=== PATIENT | female | born 1940 | race Caucasian/White ===

== ENCOUNTER 2018-06-16 13:20 | Inpatient (IN) ==
[2018-06-16] MEDS ORDERED: NS 1,000 ML IV ONE ×3 (13:57→16:36)
--- NOTE | 2018-06-16 14:20 | Diag Imaging Result Doc PS360 ---
EXAM: CHEST-2 VIEWS INDICATION: cough TECHNIQUE: 2 views COMPARISON: None. FINDINGS: There is mild interstitial thickening throughout with a grossly chronic appearance. There is suggestion of mild atelectasis versus scarring at the left lower lung zone. No well-defined airspace consolidation can be identified. There is no discrete pleural fluid collection or pneumothorax. The cardiomediastinal silhouette and central vasculature are grossly unremarkable. IMPRESSION: Chronic appearing changes as described. No definite acute pathology by plain radiograph. Electronically signed by Darci Obando 06/16/2018 2:17 PM
--- NOTE | 2018-06-16 14:44 | Diag Imaging Result Doc PS360 ---
EXAM: CT HEAD W/O CONTRAST INDICATION: Weakness generalized TECHNIQUE: This exam was performed using automated exposure control, adjustment of mA or kV according to patient size, and/or use of iterative reconstruction technique. COMPARISON: None. FINDINGS: There is a small focus of low attenuation in the subcortical white matter of the left temporal parietal region on image 27 of series 2. 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 However, it is nonspecific. A subacute lacunar infarct is possible in the right clinical scenario. There is no other definite acute infarct given the limited sensitivity of CT versus MRI. There is no discrete intracranial mass, mass effect, or intracranial hemorrhage. The surrounding soft tissues and bony structures are essentially unremarkable. 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 Please see the above discussion. Electronically signed by Darci Obando 06/16/2018 2:42 PM
[2018-06-16 14:46] LABS: BASO# 0.02 X1000 (0.0-0.2); BASO% 0.2 % (0.0-0.8); EOS# 0.44 X1000 (0.0-0.7); EOS% 3.5 % (0.0-10.0); HEMOGLOBIN 13.6 g/dL (12.0-16.0); IMM GRAN# 0.09 X1000 (0.0-0.04); IMM GRAN% 0.7 % (0.0-0.5); LYMPH# 1.78 X1000 (1.2-3.4); LYMPH% 14.1 % (20.5-51.1); MCH 31.8 PG (27-31); MCHC 33.2 g/dL (33-37); MCV 95.8 FL (81-99); MONO# 0.96 X1000 (0.11-0.59); MONO% 7.6 % (1.7-9.3); MPV 9.6 FL (7.4-10.4); NEUT% 73.9 % (42.2-75.2); PLT 326 X1000 (130-400); RBC 4.28 XMIL (4.2-5.4); RDW 13.8 % (11.5-14.5); WBC 12.59 X1000 (4.8-10.8)
[2018-06-16 15:14] LABS: AGAP 13; ALB/GLOB RATIO 1.1; ALBUMIN 4.1 g/dL (3.5-5.0); ALKALINE PHOSPHATASE 65 U/L (32-104); BUN 19 mg/dL (8-22); CALCIUM 9.9 mg/dL (8.8-10.2); CHLORIDE 96 mmol/L (98-107); CK PROFILE 40 U/L (24-173); COSMO 270; CREATININE 0.8 mg/dL (0.5-0.9); ESTIMATED GFR > 60; GLUCOSE 119 mg/dL (70-104); GOT 23 U/L (10-30); GPT 18 U/L (10-36); POTASSIUM 4.9 mmol/L (3.5-5.1); SODIUM 133 mmol/L (136-145); TCO2 24 mmol/L (25-35); TOTAL BILIRUBIN 0.49 mg/dL (0.20-1.00); TOTAL PROTEIN 7.9 g/dL (6.3-8.3)
[2018-06-16 15:14] LABS: URINE SOURCE CLEAN CATCH
[2018-06-16 15:18] LABS: BILIRUBIN URINE NEGATIVE (NEGATIVE); BLOOD URINE NEGATIVE (NEGATIVE); COLOR YELLOW; GLUCOSE URINE NEGATIVE (NEGATIVE); KETONE URINE 10 mg/dL (NEGATIVE); LEUKOCYTES URINE SMALL (NEGATIVE); NITRITE URINE NEGATIVE (NEGATIVE); PH URINE 5.5; PROTEIN URINE TRACE mg/dL (NEGATIVE); SP GRAVITY URINE 1.016; TURBIDITY URINE CLEAR (CLEAR); UR EPITHELIAL CELLS <10 /HPF (<10); URINE BACTERIA NEGATIVE /HPF; URINE RBC <10 /HPF (<10); UROBILINOGEN URINE NORMAL (NORMAL)
--- NOTE | 2018-06-16 16:09 | PROVIDER DOCUMENTATION ---
This chart was entered by Jen Cabrera Scribe, acting as scribe for Ken Joe MD. HPI-General Adult - General Chief Complaint: Weakness Stated Complaint: DONT FEEL GOOD ALL OVER Time Seen by Provider: 06/16/18 13:40 Source: patient, family Allergies/Adverse Reactions: Patient Allergies Allergy/AdvReac Type Severity Reaction Status Date / Time Penicillins Allergy SWELLING Verified 06/23/13 13:37 Home Medications: Home Medication List Medication Instructions Recorded Confirmed Last Taken Type Bisoprolol [Zebeta] 5 mg PO DAILY 06/23/13 07/25/13 07/24/13 07:00 History Famotidine [Pepcid] 20 mg PO BID 06/23/13 07/25/13 07/24/13 07:00 History Metronidazole [Flagyl] 500 mg PO TID #21 tablet 07/29/13 Unknown Rx - History of Present Illness -Gen Adult Nature of Presenting Problems: 77 y/o female presents to ED with worsening cough, weakness, and diarrhea onset last night. Family of pt reports she was diagnosed with UTI at PCP office 8 days ago and is being treated with macrobid. Family states she began complaining cough and UTI symptoms 5 days ago. Pt is alert and oriented. Location of Pain/Injury: reports: generalized Pain Radiation: reports: no radiation Quality of Pain: reports: none Severity: reports: mild Onset/Duration: reports: 5 days ago Timing: reports: getting worse Context/Activities at Onset: reports: none Modifying Factors: improves with: nothing Associated Symptoms: reports: cough, diarrhea, weakness, other (UTI symptoms) Similar Symptoms Previously?: No Recently seen or treated by another doctor?: Yes (PCP 8 days ago for UTI) Review of Systems - Adult - REVIEW OF SYSTEMS - ADULT Constitutional: denies: chills, fever Eyes: reports: no symptoms reported Ears, Nose, Mouth & Throat: reports: no symptoms reported Cardiovascular: denies: chest pain, palpitations Respiratory: reports: cough. denies: shortness of breath Gastrointestinal: reports: diarrhea. denies: abdominal pain, nausea, vomiting Genitourinary: reports: dysuria. denies: incontinence Musculoskeletal: denies: back pain, joint pain Integumentary: reports: no symptoms reported Neurological: reports: other (weakness). denies: dizziness/vertigo, seizure Psychiatric: reports: no symptoms reported Endocrine: reports: no symptoms reported Hematologic/Lymphatic: reports: no symptoms reported Allergic/Immunologic: reports: no symptoms reported All Other Systems: Reviewed and Negative Past History - Adult - PAST MEDICAL HISTORY-ADULT Review of Records: reports: Old Records Reviewed, Nursing Assessment Review, Medications Reviewed Major Childhood Illnesses: reports: denies history Cardiovascular: reports: HTN - PRIOR SURGERIES/PROCEDURES Surgical/Procedure History: reports: none - IMMUNIZATION STATUS Childhood Immunizations: See Nurse Assessment Flu Vaccine: See Nurse Assessment - FAMILY HISTORY Family History: reviewed, not pertinent - SOCIAL HISTORY Smoking: non-smoker Substance Use: none/never Alcohol Use Frequency: never Living Situation: family Physical Exam-General - PHYSICAL EXAM-ADULT Initial Vital Signs Reviewed: Yes - CONSTITUTIONAL General Appearance: appears well, alert, no apparent distress - EYES Eyes: PERRL/EOMI, pink conjunctivae - HEAD, EARS, NOSE, MOUTH & THROAT HENMT: normocephalic/atraumatic, moist mucous membranes, normal ENT inspection - NECK Neck: non-tender, full range of motion - RESPIRATORY Respiratory: chest non-tender, lungs clear, normal breath sounds - CARDIOVASCULAR Cardiovascular: normal peripheral pulses, regular rate, rhythm - GASTROINTESTINAL (ABDOMEN) Abdominal Exam: normal bowel sounds, soft, tenderness (diffuse) - MUSCULOSKELETAL Back Exam: normal inspection, no CVA tenderness Extremity: normal range of motion, non-tender, normal gait - SKIN Integumentary: normal color, warm/dry - NEUROLOGIC Neurologic: grossly normal - PSYCHIATRIC Psych/Mental Status: normal mood/affect, normal thought content, normal thought process Progress - PLAN OF CARE/RESULTS Progress/Plan/Lab Results: Vital Signs - 8 hr 06/16/18 13:32 Temperature 98.4 F Pulse Rate 104 H Respiratory Rate 19 Blood Pressure 106/73 O2 Sat by Pulse Oximetry 96 Influenza A and B are negative. Laboratory Tests 06/16/18 14:30 WBC 12.59 H RBC 4.28 Hgb 13.6 Hct 41.0 MCV 95.8 MCH 31.8 H MCHC 33.2 RDW Std Deviation 13.8 Plt Count 326 MPV 9.6 Immature Gran % (Auto) 0.7 H Neut % (Auto) 73.9 Lymph % (Auto) 14.1 L [place] % (Auto) 7.6 Eos % (Auto) 3.5 Baso % (Auto) 0.2 Immature Gran # (Auto) 0.09 H Neut # (Auto) 9.30 H Lymph # (Auto) 1.78 [place] # (Auto) 0.96 H Eos # (Auto) 0.44 Baso # (Auto) 0.02 Laboratory Tests 06/16/18 06/16/18 06/16/18 14:30 14:30 14:30 WBC 12.59 H RBC 4.28 Hgb 13.6 Hct 41.0 MCV 95.8 MCH 31.8 H MCHC 33.2 RDW Std Deviation 13.8 Plt Count 326 MPV 9.6 Immature Gran % (Auto) 0.7 H Neut % (Auto) 73.9 Lymph % (Auto) 14.1 L [place] % (Auto) 7.6 Eos % (Auto) 3.5 Baso % (Auto) 0.2 Immature Gran # (Auto) 0.09 H Neut # (Auto) 9.30 H Lymph # (Auto) 1.78 [place] # (Auto) 0.96 H Eos # (Auto) 0.44 Baso # (Auto) 0.02 Sodium 133 L Potassium 4.9 Chloride 96 L Carbon Dioxide 24 L Anion Gap 13 BUN 19 Creatinine 0.8 Estimated GFR/1.73 m2 > 60 BUN/Creatinine Ratio 24 Glucose 119 H Calculated Osmolality 270 Calcium 9.9 Total Bilirubin 0.49 AST 23 ALT 18 Alkaline Phosphatase 65 Creatine Kinase 40 Troponin T < 0.010 Total Protein 7.9 Albumin 4.1 Globulin 3.8 Albumin/Globulin Ratio 1.1 Urine Source Urine Color Urine Turbidity Urine pH Ur Specific [place] Urine Protein Ur Glucose (Stick) Ur Ketones (Stick) Urine Blood Urine Nitrite Urine Bilirubin Urobilinogen Dipstick Urine Leukocytes Urine WBC (Auto) Urine RBC (Auto) U Epithel Cells (Auto) Urine Bacteria (Auto) 06/16/18 15:03 WBC RBC Hgb Hct MCV MCH MCHC RDW Std Deviation Plt Count MPV Immature Gran % (Auto) Neut % (Auto) Lymph % (Auto) [place] % (Auto) Eos % (Auto) Baso % (Auto) Immature Gran # (Auto) Neut # (Auto) Lymph # (Auto) [place] # (Auto) Eos # (Auto) Baso # (Auto) Sodium Potassium Chloride Carbon Dioxide Anion Gap BUN Creatinine Estimated GFR/1.73 m2 BUN/Creatinine Ratio Glucose Calculated Osmolality Calcium Total Bilirubin AST ALT Alkaline Phosphatase Creatine Kinase Troponin T Total Protein Albumin Globulin Albumin/Globulin Ratio Urine Source CLEAN CATCH Urine Color YELLOW Urine Turbidity CLEAR Urine pH 5.5 Ur Specific [place] 1.016 Urine Protein TRACE A Ur Glucose (Stick) NEGATIVE Ur Ketones (Stick) 10 A Urine Blood NEGATIVE Urine Nitrite NEGATIVE Urine Bilirubin NEGATIVE Urobilinogen Dipstick NORMAL Urine Leukocytes SMALL A Urine WBC (Auto) 10-20 A Urine RBC (Auto) <10 U Epithel Cells (Auto) <10 Urine Bacteria (Auto) NEGATIVE A/P: UTI and generalized weakness. Dr Martinez accepted admission. Started IV levaquin and IV fuids, vitals stable. Result Diagrams: 06/16/18 14:30 06/16/18 14:30 - EKG 1 Time of EKG reading by physician:: 13:42 EKG Read and Signed by:: Ken Joe EKG Interpretation (*Must complete 3 of following elements*): Normal Rate: 96 Rhythm: NSR [place]: normal QRS: normal AR Interval: normal ST Wave: normal - XRAY 1 XRAY Study: Chest Impression: Normal (FINDINGS: There is mild interstitial thickening throughout with a grossly chronic appearance. There is suggestion of mild atelectasis versus scarring at the left lower lung zone. No well-defined airspace consolidation can be identified. There is no discrete pleural fluid collection or pneumothorax. The cardiomediastinal silhouette and central vasculature are grossly unremarkable. IMPRESSION: Chronic appearing changes as described. No definite acute pathology by plain radiograph. Electronically signed by Darci Obando 06/16/2018 2:17 PM) - CT/MRI 1 CT Study: Head Impression: Abnormal ( FINDINGS: There is a small focus of low attenuation in the subcortical white matter of the left temporal parietal region on image 27 of series 2. 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 However, it is nonspecific. A subacute lacunar infarct is possible in the right clinical scenario. There is no other definite acute infarct given the limited sensitivity of CT versus MRI. There is no discrete intracranial mass, mass effect, or intracranial hemorrhage. The surrounding soft tissues and bony structures are essentially unremarkable. 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 Please see the above discussion. Electronically signed by Darci Obando 06/16/2018 2:42 PM) - CONSULTS/PCP/HOSPITALIST Notification #1 *Consult/PCP/Hospitalist*: Dr. Teran Time Discussed: 15:48 Reason/Comments: UTI; generalized weakness Consult Disposition: Admit Departure - Departure Date of Disposition Decision: 06/16/18 Time of Disposition Decision: 15:48 DIAGNOSIS: Generalized weakness UTI (urinary tract infection) Qualifiers: Urinary tract infection type: site unspecified Hematuria presence: without hematuria Qualified Code(s): N39.0 - Urinary tract infection, site not specified Disposition: ADMITTED INPATIENT 09 Certified Medical Emergency: Emergent Condition: Stable Additional Freetext Instructions: ED Follow Up Instructions: You have been treated by a care provider in the Emergency Department. These instructions are being provided to you so you can have an understanding of how to care for yourself upon discharge. Upon discharge from the Emergency Department, you are responsible for making arrangements for follow-up care by a physician of your choice. Take all prescribed medications as directed. Return to the Emergency Department immediately for any new or worsening symptoms. You may call the Physician Referral phone number at [phone] to obtain a list of Physicians who are taking new patients. We have examined and treated you today on an emergency basis only. This was not a substitute for, or an effort to provide, complete medical care. In most cases, you must let your doctor check you again. Tell your doctor about any new or lasting problems. We cannot recognize and treat all injuries or illnesses in one Emergency Department visit. If you had special tests, such as X-rays or CT scans, will be reviewed by radiologist and will call you if there are any new suggestions Follow up with primary care provider in 1 to 2 days if no improvement. If you do not have a primary care provider, you need to choose one as soon as possible. Take medicines as prescribed. Monitor for any side effects or adverse events fro m medications. If any side effect, adverse event or rash develops, or if you suspect any other adverse reaction to the medication, then discontinue the medication immediately and contact clinic /PCP or go to the nearest ER. Narcotic meds / sedative meds instruction - patent advised not to drive, operate any machinery or go into water after taking meds as it may impair mental ability to react to the situation in an appropriate manner. Continue other current medicines. Follow up with PCP within 24-48 hours, or sooner if symptoms worsen or fail to improve. Patient / guardian verbalizes understanding of treatment plan, medication, and side effects and agrees with treatment plan. Patient leaves ER in stable condition and ambulatory state. Return to ER as needed. Discharge instructions reviewed verbally and given to patient in written form. Follow up with primary care provider. Referrals and Follow-Ups: Cheryl Lilly MD [Primary Care Provider] - - Critical Care Note This patient required my direct & personal management of CC.: No Attestation - Physician/ JOYCE Attestation Patient care was provided by Advanced Practice Provider:: No The physician spent face to face time with patient:: Yes Advanced Practice Provider documentation review:: Supervising physician onsite and consulted in the evaluation and care of this patient. The physician did have a face to face encounter with the patient. This chart was documented by the indicated scribe, (Jen Cabrera, [employer]) and accurately reflects the services I performed and decisions made by me, Ken Joe MD, as attested by the provider's signature.
[2018-06-16] MEDS ORDERED: TYLENOL PO ONE (16:24)
[2018-06-16] MEDS: LEVAQUIN 500 MG/D5W 500 MG/100 ML IVPB IV SCH (16:50)
[2018-06-16] MEDS ORDERED: SODIUM CHLORIDE 0.9% INJ SCH (19:30)
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
[2018-06-16] MEDS ORDERED: ZEBETA PO SCH (21:00)
[2018-06-16] MEDS: LOVENOX SUBQ SCH (21:04)
[2018-06-16] MEDS: POTASSIUM CHLORIDE 10 MEQ in NS 1,000 ML IV SCH (21:04)
[2018-06-16] MEDS: PROTONIX IV SCH (21:04)
[2018-06-17 06:27] LABS: BASO# 0.02 X1000 (0.0-0.2); BASO% 0.2 % (0.0-0.8); EOS# 0.45 X1000 (0.0-0.7); EOS% 4.1 % (0.0-10.0); HEMATOCRIT 36.9 % (37.0-47.0); HEMOGLOBIN 11.9 g/dL (12.0-16.0); IMM GRAN# 0.07 X1000 (0.0-0.04); IMM GRAN% 0.6 % (0.0-0.5); LYMPH# 2.07 X1000 (1.2-3.4); LYMPH% 18.7 % (20.5-51.1); MCH 31.4 PG (27-31); MCHC 32.2 g/dL (33-37); MCV 97.4 FL (81-99); MONO# 0.74 X1000 (0.11-0.59); MONO% 6.7 % (1.7-9.3); MPV 9.7 FL (7.4-10.4); NEUT# 7.71 X1000 (1.4-6.5); NEUT% 69.7 % (42.2-75.2); PLT 285 X1000 (130-400); RBC 3.79 XMIL (4.2-5.4); RDW 14.2 % (11.5-14.5); WBC 11.06 X1000 (4.8-10.8)
[2018-06-17 07:06] LABS: AGAP 8; ALB/GLOB RATIO 0.9; ALBUMIN 3.3 g/dL (3.5-5.0); ALKALINE PHOSPHATASE 53 U/L (32-104); BUN 14 mg/dL (8-22); CALCIUM 8.8 mg/dL (8.8-10.2); CHLORIDE 111 mmol/L (98-107); COSMO 284; CREATININE 0.7 mg/dL (0.5-0.9); ESTIMATED GFR > 60; GLUCOSE 99 mg/dL (70-104); GOT 17 U/L (10-30); GPT 13 U/L (10-36); MAGNESIUM 1.8 mg/dL (1.5-2.7); POTASSIUM 4.7 mmol/L (3.5-5.1); SODIUM 142 mmol/L (136-145); TCO2 23 mmol/L (25-35); TOTAL BILIRUBIN 0.33 mg/dL (0.20-1.00); TOTAL PROTEIN 6.8 g/dL (6.3-8.3)
[2018-06-17] MEDS: POTASSIUM CHLORIDE 10 MEQ in NS 1,000 ML IV SCH (10:21)
[2018-06-17] MEDS: TYLENOL PO PRN ×2 (10:21→21:22)
--- NOTE | 2018-06-17 10:22 | PROGRESS NOTE ---
DATE: 06/17/2018 SUBJECTIVE: Ms. Swanson is feeling better. She denied any fever or chills. No dysuria. Her weakness seems to be getting better. No unusual cough or expectoration. Denied any chest pain. OBJECTIVE: Vital Signs: Vital signs noted. Neck: Supple. No JVD. Lungs: Bilateral good air entry present. CVS: S1 and S2 heard. Abdomen: Soft, nontender. Bowel sounds present. Extremities: No cyanosis, clubbing. No acute DVT. ACCOUNTS MANAGER: Alert, awake. Able to move all 4 limbs. ASSESSMENT: 1. The patient admitted with severe weakness. 2. Her blood pressure was at times low. 3. Also had hyponatremia, which improved. 4. Clinical dehydration. 5. Urinary tract infection. PLAN: The patient's blood pressure at times was staying low. I am going to decrease her blood pressure medicine to half the dose, 2.5 mg. Continue the rest of the treatment. Close observation. Urine culture result is pending. We will watch patient today. If clinical condition permits, we will plan discharging patient home tomorrow. We will ambulate the patient in the room and hallway. cc: Harjinder Teran MD
[2018-06-17] MEDS: LEVAQUIN 500 MG/D5W 500 MG/100 ML IVPB IV SCH (16:06)
[2018-06-17] MEDS: ZEBETA PO SCH (21:22)
[2018-06-17] MEDS: LOVENOX SUBQ SCH (21:23)
[2018-06-17] MEDS: PROTONIX IV SCH (21:23)
[2018-06-18] MEDS: TYLENOL PO PRN ×2 (01:59→14:02)
[2018-06-18] MEDS ORDERED: MORPHINE IV ONE (05:09)
[2018-06-18] MEDS ORDERED: ASPIRIN EC PO ONE (05:09)
--- NOTE | 2018-06-18 07:02 | EKG Report ---
Test Performed on : 06/18/2018 04:43:38 AM Test Reason : chest pain Blood Pressure : / mmHG Vent. Rate : 080 BPM Atrial Rate : 080 BPM P-R Int : 132 ms QRS Dur : 084 ms QT Int : 370 ms P-R-T Axes : 052 043 066 degrees QTc Int : 426 ms Normal sinus rhythm. Nonspecific T wave abnormality Abnormal ECG When compared with ECG of 16-JUN-2018 13:42, (Unconfirmed) No significant change was found Confirmed by Edvin LANE, Brodie Briceno ([id number]) on 06/18/2018 12:49:09 PM
--- NOTE | 2018-06-18 07:21 | EKG Report ---
Test Performed on : 06/16/2018 1:42:01 PM Test Reason : wekaness Blood Pressure : / mmHG Vent. Rate : 096 BPM Atrial Rate : 096 BPM P-R Int : 134 ms QRS Dur : 080 ms QT Int : 318 ms P-R-T Axes : 048 020 053 degrees QTc Int : 401 ms Normal sinus rhythm. Normal ECG No previous ECGs available Unconfirmed Result
[2018-06-18] MEDS: TORADOL IV PRN ×2 (09:44→14:44)
--- NOTE | 2018-06-18 10:01 | Diag Imaging Result Doc PS360 ---
EXAM: SHOULDER-LEFT HISTORY: Pain TECHNIQUE: Left shoulder two views COMPARISON: None. FINDINGS: No fracture. No dislocation. No separation at the acromioclavicular joint. Prominent bone spurring and narrowing to the acromioclavicular joint. There is also glenohumeral joint space narrowing with bony remodeling of the humeral head. IMPRESSION: Long-standing arthritis. Electronically signed by Oscar Keller 06/18/2018 9:58 AM
--- NOTE | 2018-06-18 21:06 | PROGRESS NOTE ---
DATE: 06/18/2018 SUBJECTIVE: Level 3 documentation. A 77-year-old white female admitted to the hospital on 06/16/2018 with generalized complaints and weakness. She had a urinary tract infection in my office. She is also prone for C difficile diarrhea. She was placed on Macrobid. Apparently, I did review the H and P that was done by Dr. Teran. Now she complains of atypical chest pain, left shoulder, and no shortness of breath, PND, orthopnea, and no swelling of feet. PAST MEDICAL HISTORY: Reviewed. PAST SURGICAL HISTORY: Reviewed. MEDICINES: Reviewed. ALLERGIES: Penicillin. PHYSICAL EXAMINATION: Vital Signs: Temperature is 98.2 degrees, pulse is 83, blood pressure 129/63, 2 L nasal cannula 99%. HEENT: Within normal limits. Neck: Supple. Chest: Clear. Heart: Sounds are regular. Tenderness in the shoulder area. Abdomen: Belly is soft, nontender. Extremities: No peripheral edema or cyanosis. Neurologic: No neurological deficits. INVESTIGATIONS: CBC: White cell count 11, hematocrit 36.9, platelets 285,000. SMA 7 is normal. LFTs and cardiac enzymes are normal. Repeat urine cultures blood cultures are negative. Flu test is negative. EKG: Normal sinus, nothing acute. X-ray of the shoulder: Prominent bone spurring, narrowing to the AC joint. CT head: No definitive hemorrhage. Could be small stroke on the left temporoparietal area. Chest x-ray: Nothing acute. ASSESSMENT AND PLAN: 1. Recent urinary tract infection, improving. 2. Prone for Clostridium difficile. Discontinue antibiotics. 3. Deep vein thrombosis prophylaxis with Lovenox. 4. Gastrointestinal prophylaxis with intravenous Protonix. 5. Atypical chest pain. Follow up on electrocardiogram and cardiac enzymes. We will give Toradol as needed. 6. Hypertension, on Zebeta. 7. Abnormal CT, currently stable. 8. Out of the bed and will follow up. LEVEL OF DOCUMENTATION: 35 minutes. cc: Niko Lilly MD
[2018-06-18] MEDS: PROTONIX IV SCH (21:41)
[2018-06-18] MEDS: LOVENOX SUBQ SCH (21:42)
[2018-06-18] MEDS: ZEBETA PO SCH (21:42)
[2018-06-19] MEDS: TORADOL IV PRN (04:40)
[2018-06-19 08:13] VITALS: BP 124/56
--- NOTE | 2018-06-21 04:13 | DISCHARGE SUMMARY ---
ADMISSION DATE: 06/16/2018 DISCHARGE DATE: 06/19/2018 DISCHARGING DIAGNOSIS: Altered mental status due to dehydration. SECONDARY DIAGNOSES: 1. Recently treated for urinary tract infection. 2. Hypertension. 3. Left shoulder pain due to osteoarthritis. 4. Atypical chest pain. BRIEF HISTORY: Please see the H and P that was done by Dr. terrazas. In brief, she is a 77-year-old white female who came in with extreme weakness after treating for UTI, some nonspecific diarrhea, was found to have dehydration and hyponatremia. The patient was given IV fluids, IV Levaquin. Follow up workup, normal CBC, normal renal function test. Then the patient started having left- sided chest pain and shoulder pain. X-ray showed osteoarthritis. Follow up EKG cardiac enzymes were negative. The patient came back to the baseline. The rest of the hospital course was uneventful. DISCHARGE LABORATORIES: CBC: White cell count 11, hematocrit 36.9, platelets 285,000. SMA 7: Sodium 142, potassium 4.7, BUN 14, creatinine 0.7. Liver function tests were normal. Cardiac enzymes were normal. Blood cultures and urine cultures were negative. RADIOLOGY PROCEDURES: Shoulder x-ray reported long-standing arthritis. CT head, some white matter microangiopathy and chest x-ray negative. DISCHARGE INSTRUCTIONS: Follow up in my office next week and continue Zebeta 5 mg daily. Discontinue antibiotics. Tylenol as needed for pain. cc: Niko Lilly MD [facility]
== END 2018-06-19 10:00 | disposition home or self-care (01) | DRG 641 ==
LOC: ED 13:20 → 4N 16:44
PROVIDERS: ADMIT Internal Medicine; ATTEND Internal Medicine
CPT/HCPCS: 70450; 71020; 71046; 73030; 80053; 81001; 82550; 82948; 83605; 83735; 84484; 85025; 87040; 87088; 87275; 87276; 87804; 93005; 93010; 94761; 96365; 99285; A9270; C9113; J1650; J1885; J1956; J2270; J3480; J7030; S0164; XXXXX

== ENCOUNTER 2018-06-28 02:32 | Inpatient (IN) ==
[2018-06-28] MEDS ORDERED: NS 500 ML IV ONE (03:27)
--- NOTE | 2018-06-28 03:32 | PROVIDER DOCUMENTATION ---
HPI-General Adult - General Chief Complaint: Abdominal Pain Stated Complaint: abd pain Time Seen by Provider: 06/28/18 03:22 Source: patient, family Allergies/Adverse Reactions: Patient Allergies Allergy/AdvReac Type Severity Reaction Status Date / Time Penicillins Allergy SWELLING Verified 06/28/18 03:26 Home Medications: Home Medication List Medication Instructions Recorded Confirmed Last Taken Type Bisoprolol [Zebeta] 5 mg PO QHS 06/23/13 06/16/18 06/15/18 History - History of Present Illness -Gen Adult Nature of Presenting Problems: VAGUE WEAKNESS, RESTLESS, PAIN IN LEFT SHOULDER, COUGH, CHILLSTODAY AND WORSENING THIS EVENING. JUST DISCHARGED FROM [facility] WITH DR MUÑOZ FOR A UTI. STRUGGLING TO CLEAR UTI > 3 WEEKS. REPORTED LOW BP AT HOUSE: 84/45. P OX LOWER INITAL HERE AT 89% ON 2 LITERS . NO HX LUNG DISEASE OR CARDIAC DISEASE. Review of Systems - Adult - REVIEW OF SYSTEMS - ADULT Constitutional: reports: no symptoms reported, chills, fatique. denies: fever, night sweats Eyes: reports: no symptoms reported Ears, Nose, Mouth & Throat: reports: no symptoms reported Cardiovascular: reports: no symptoms reported. denies: chest pain, edema, palpitations Respiratory: reports: cough. denies: excessive sputum production, shortness of breath, wheezing Gastrointestinal: reports: nausea Genitourinary: reports: frequent UTI's Musculoskeletal: reports: no symptoms reported Integumentary: reports: no symptoms reported Neurological: reports: no symptoms reported Psychiatric: reports: no symptoms reported Endocrine: reports: no symptoms reported Hematologic/Lymphatic: reports: no symptoms reported Allergic/Immunologic: reports: no symptoms reported All Other Systems: Reviewed and Negative Past History - Adult - PAST MEDICAL HISTORY-ADULT Review of Records: reports: Old Records Reviewed, Nursing Assessment Review, Medications Reviewed, Social history reviewed & non-contributory. Major Childhood Illnesses: reports: denies history Cardiovascular: reports: denies history Respiratory: reports: denies history Gastrointestinal: reports: denies history Obstetrical/Gynecological: reports: denies history Genitourinary: reports: denies history Musculoskeletal: reports: denies history Neurological: reports: denies history Endocrine/Immune: reports: denies history Other Conditions: reports: denies history Physical Exam-General - PHYSICAL EXAM-ADULT Initial Vital Signs Reviewed: Yes - CONSTITUTIONAL General Appearance: alert, mild distress, other (FUSSY, RESTLESS.) - EYES Eyes: PERRL/EOMI - HEAD, EARS, NOSE, MOUTH & THROAT HENMT: normocephalic/atraumatic, moist mucous membranes - NECK Neck: full range of motion, supple - RESPIRATORY Respiratory: lungs clear, normal breath sounds, no accessory muscle use. negative: respiratory distress, stridor, retractions, splinting - CARDIOVASCULAR Cardiovascular: normal peripheral pulses, regular rate, rhythm, no edema - GASTROINTESTINAL (ABDOMEN) Abdominal Exam: normal bowel sounds, non tender, soft - SKIN Integumentary: normal color, normal turgor, warm/dry - NEUROLOGIC Neurologic: learning solutions specialist II-XII nml as tested, grossly normal, no motor/sensory deficits. negative: facial droop, focal weakness, motor weakness - PSYCHIATRIC Psych/Mental Status: normal mood/affect, normal thought content, normal thought process, oriented x 3 Progress - PLAN OF CARE/RESULTS Progress/Plan/Lab Results: Vital Signs - 8 hr 06/28/18 02:59 06/28/18 03:24 Temperature 98.1 F Pulse Rate 88 Respiratory Rate 19 Blood Pressure 94/62 O2 Sat by Pulse Oximetry 92 L 95 Orders Category Date Time Status Cardiac Monitoring DIRECTED Care 06/28/18 03:22 Ordered ED: Orthostatic Vital Signs (E as directed Care 06/28/18 03:27 Ordered Saline Loc NOW Care 06/28/18 03:23 Ordered CHEST-PORTABLE [RAD] Stat Exams 06/28/18 03:24 Ordered ABG [RESP] Stat Lab 06/28/18 03:23 Ordered BLOOD CULTURE [BLDCUL] Stat Lab 06/28/18 03:23 Ordered COMPREHENSIVE METABOLIC PANEL [CHEM] Stat Lab 06/28/18 03:23 Ordered D-DIMER [COAG] Stat Lab 06/28/18 03:23 Ordered INFLUENZA SCREEN A/B Stat Lab 06/28/18 03:23 Uncollected PRO B-NATRIURETIC PEPTIDE Stat Lab 06/28/18 03:24 Uncollected TROPONIN T Stat Lab 06/28/18 03:24 Uncollected URINALYSIS W/POSS RFLX CULT [URINALYSIS] Stat Lab 06/28/18 03:24 Uncollected Ns 500 ml IV Bolus X1 Med 06/28/18 03:27 Ordered 0.9% Sodium Chloride Inj [Ns] 500 ml IV 999 mls/hr Oxygen Device Stat Oth 06/28/18 03:23 Ordered EKG [EKG] Stat Ther 06/28/18 03:23 Ordered Result Diagrams: 06/28/18 03:08 - REASSESSMENT Reassessment #1 Time Reassessed: 05:45 Status: unchanged (IV HYDRATING, AWAITING READING CTA CHEST.) - EKG 1 Time of EKG reading by physician:: 03:00 EKG Read and Signed by:: Ubaldo Fernadnes EKG Interpretation (*Must complete 3 of following elements*): Normal Rate: 93 Rhythm: SINUS W/ OCC PVCs [place]: normal CO Interval: normal ST Wave: normal - CONSULTS/PCP/HOSPITALIST Notification #1 *Consult/PCP/Hospitalist*: Maxx Time Discussed: 07:35 Consult Disposition: Admit - CHANGE OF SHIFT REPORT (ED Provider) 1 Report Given and Care Transferred to:: DR DUCKWORTH Time of Transfer: 06:58 Departure - Departure Date of Disposition Decision: 06/28/18 Time of Disposition Decision: 07:35 DIAGNOSIS: Weakness, Dehydration, Hypoxemia, Hypotension Pneumonia Qualifiers: Pneumonia type: due to unspecified organism Laterality: left Disposition: ADMITTED INPATIENT 09 Certified Medical Emergency: Emergent Condition: Serious Referrals and Follow-Ups: Cheryl Muñoz MD [Primary Care Provider] - - Critical Care Note This patient required my direct & personal management of CC.: No Attestation - Physician/ JOYCE Attestation The physician spent face to face time with patient:: Yes Advanced Practice Provider documentation review:: Supervising physician onsite and consulted in the evaluation and care of this patient. The physician did have a face to face encounter with the patient.
[2018-06-28 03:58] LABS: ALB/GLOB RATIO 0.7; ALBUMIN 3.4 g/dL (3.5-5.0); POTASSIUM 4.5 mmol/L (3.5-5.1); TOTAL BILIRUBIN 0.47 mg/dL (0.20-1.00)
[2018-06-28 04:32] LABS: ALLEN TEST YES; BE 0.2 mmoll (-3.0-3.0); BLOOD TYPE ARTERIAL; METHB 1.4 % (0.0-1.5); O2(CT) 17.4 mL/dL (15.0-23.0); O2HB 95.4 % (95.0-99.0); PCO2(98.6) 33 mmHg (35-45); PO2(98.6) 81 mmHg (60-100); SAMPLE BLOOD; SAO2 98.6 % (95.0-100.0); THB 12.9 g/dL (11.5-17.4); pH(98.6) 7.46 (7.35-7.45)
[2018-06-28 04:33] LABS: MODALITY CANNULA
--- NOTE | 2018-06-28 06:33 | Diag Imaging Result Doc PS360 ---
CHEST-PORTABLE - 06/28/2018 INDICATION: SOB COMPARISON: 06/16/2018 FINDINGS: There is some stable faint linear atelectasis at the cardiac apex. No focal infiltrates, pneumothorax, or pleural effusion. Heart size is normal. IMPRESSION: No change from prior. No acute process. Electronically signed by Natanael Hutchison 06/28/2018 6:31 AM
[2018-06-28] MEDS ORDERED: LEVAQUIN 750 MG/D5W 750 MG/150 ML IVPB IV ONE (06:52)
--- NOTE | 2018-06-28 07:16 | EKG Report ---
Test Performed on : 06/28/2018 02:52:59 AM Test Reason : SOB Blood Pressure : / mmHG Vent. Rate : 093 BPM Atrial Rate : 093 BPM P-R Int : 124 ms QRS Dur : 072 ms QT Int : 350 ms P-R-T Axes : 048 010 061 degrees QTc Int : 435 ms Sinus rhythm. with occasional ventricular-paced complexes and premature supraventricular complexes. Abnormal ECG When compared with ECG of 18-JUN-2018 04:43, Electronic ventricular pacemaker has replaced Sinus rhythm. Unconfirmed Result
[2018-06-28] MEDS ORDERED: VANCOMYCIN 1 GM/NS 1 GM/250 ML IVPB IV ONE (07:33)
--- NOTE | 2018-06-28 07:48 | Diag Imaging Result Doc PS360 ---
EXAM: CT ANGIOGRM PULMONARY ARTERIES 06/28/2018 HISTORY: SOB, ELEV D-DIMER,HYPOX TECHNIQUE: This exam was performed using automated exposure control, adjustment of mA or kV according to patient size, and/or use of iterative reconstruction technique. COMMENT: 3-D MIPS were performed there are no previous thoracic studies. There are no filling defects in the pulmonary arteries. The aorta is not distended and there is no evidence of dissection. There is a small amount of fluid in the pericardium. There is a tiny left pleural effusion. There are some coronary calcifications. There are calcified granulomatous nodes in the subcarina and left hilum. There are some noncalcified precarinal and aorticopulmonary window nodes the latter including a node measuring 13 mm in diameter. There is some fibrosis or atelectasis in both lung bases. This is particularly true in the left lower lobe. Compared to the previous abdominal study of 06/23/2013 this is worse. IMPRESSION: No evidence of pulmonary emboli. Bibasilar atelectasis and/or bronchopneumonia. Electronically signed by Nilesh Lou 06/28/2018 7:46 AM
[2018-06-28 08:00] LABS: URINE SOURCE CATH
[2018-06-28 08:12] LABS: UR EPITHELIAL CELLS <10 /HPF (<10); URINE BACTERIA NEGATIVE /HPF; URINE RBC <10 /HPF (<10); URINE WBC 20-40 /HPF (<10)
[2018-06-28 08:13] LABS: BILIRUBIN URINE NEGATIVE (NEGATIVE); BLOOD URINE NEGATIVE (NEGATIVE); COLOR YELLOW; GLUCOSE URINE NEGATIVE (NEGATIVE); KETONE URINE NEGATIVE (NEGATIVE); LEUKOCYTES URINE SMALL (NEGATIVE); NITRITE URINE NEGATIVE (NEGATIVE); PROTEIN URINE TRACE mg/dL (NEGATIVE); TURBIDITY URINE CLEAR (CLEAR); UROBILINOGEN URINE NORMAL (NORMAL)
[2018-06-28] MEDS ORDERED: VANCOMYCIN IV PER PHARMACY MISC SCH (09:45)
[2018-06-28] MEDS: NS 1,000 ML IV SCH (10:35)
[2018-06-28] MEDS: ZOFRAN IV PRN ×2 (12:29→18:16)
[2018-06-28] MEDS: VANCOMYCIN 1 GM/NS 1 GM/250 ML IVPB IV SCH (13:19)
[2018-06-28] MEDS: TYLENOL PO PRN (20:17)
[2018-06-29] MEDS: NS 1,000 ML IV SCH ×3 (01:12→13:10)
[2018-06-29] MEDS: PEPCID IV SCH ×3 (01:12→20:36)
[2018-06-29] MEDS: LOVENOX SUBQ SCH ×2 (01:13→20:36)
--- NOTE | 2018-06-29 03:14 | HISTORY AND PHYSICAL ---
CHIEF COMPLAINT: The patient was brought in by the family with different problems, weakness, restless, pain in the left shoulder, cough and chills and worsening this morning. [place] [facility] had blood pressure that was low, oxygen 89%. The patient was brought in to the emergency room. The patient was seen by the ER physician who called me for an admission. She was seen in my office last week after the recent hospitalization. The patient is doing much better. She denies any shoulder pain. Last admission EKG was unremarkable, ruled out for cardiac enzymes for myocardial infarction and also left shoulder has arthritis. In the meantime she complains of fatigue and weakness. She has some crackles in the left base, possible bronchopneumonia and basically admitted to the hospital for: 1. Dehydration. 2. Possible pneumonia. 3. Rule out myocardial infarction. 4. Evaluation for hypoxemia as per the ER physician. The whole family was at bedside along with the and the children. She is also getting some low-grade fever. PAST MEDICAL HISTORY: 1. Atypical chest pain. Stress test was negative in June 2016. 2. History of Clostridium difficile colitis due to clindamycin. 3. Metabolic syndrome. 4. Hyperlipidemia. 5. Hypertension. 6. History of kidney stones. 7. Ventral hernia. PAST SURGICAL HISTORY: 1. Complete hysterectomy. 2. Cataract surgery in the left eye. MEDICINES: Bisoprolol. ALLERGIES: Penicillin. SOCIAL HISTORY: She has been , 3 children, living in [place]. No smoking. No alcohol. FAMILY HISTORY: Father at the age of 85 . Mom of pneumonia at 99. Brother had MA. HEALTH MAINTENANCE: Flu vaccine December 2017, pneumococcal 2015, shingles 2015. Colonoscopy [address] Pierre. Mammography July 2017. REVIEW OF SYSTEMS: HEENT: Feeling weakness, dizzy, passing out. No headache. No neck pain. Cardiopulmonary: Left-sided chest pain, cough. GI: No nausea, vomiting, abdominal pain. History of UTI symptoms. Neurological: No focal symptoms of weakness. EXAMINATION: Vitals: Temperature is 99.5 degrees, pulse is 93, blood pressure is 83/24. HEENT: Within normal limits. Neck: Supple. Chest: Some crackles in the left base. Heart: Sounds are regular. Abdomen: Belly is soft, nontender. Good bowel sounds. Neuro: No neurological deficits. INVESTIGATIONS: D-dimer 4.2. ABG: pH is 7.46, pCO2 33, PO2 81 on 36%. SMA-7 with BUN 28, creatinine 1.0. ProBNP 1250. Plasma lactate normal. Urinalysis is clear. Blood cultures and urine cultures are pending. CT pulmonary angiogram: No evidence of pulmonary embolism, atelectasis and bronchopneumonia. ASSESSMENT AND PLAN: 1. A 77-year-old white female admitted to the hospital with positive D-dimer, shortness of breath, left-sided chest pain, rule out pulmonary embolism. 2. Bronchopneumonia. Will give IV vancomycin. Possible aspiration. 3. Atypical chest pain. Follow up on cardiac enzymes. Previous stress test was negative in 2017. 4. Left shoulder osteoarthritis. 5. Recurrent urinary tract infection. She was given Macrobid. 6. Hypotension. Hold the beta blockers. Continue IV fluids and symptomatic treatment for nausea and will follow up. Discussed the plan of care with the family. cc: Niko Lilly MD MTDD
[2018-06-29 07:14] LABS: MCH 31.6 PG (27-31); MCHC 32.4 g/dL (33-37); MCV 97.7 FL (81-99); MPV 9.3 FL (7.4-10.4); RBC 3.48 XMIL (4.2-5.4); RDW 14.6 % (11.5-14.5); WBC 13.3 X1000 (4.8-10.8)
[2018-06-29 07:37] LABS: C REACTIVE PROT QUANT 159.43 mg/L (0.00-5.00); CALCIUM 8.8 mg/dL (8.8-10.2); CREATININE 0.9 mg/dL (0.5-0.9)
[2018-06-29 08:01] LABS: FREE T4 1.3 ng/dL (0.93-1.70)
[2018-06-29] MEDS: SODIUM CHLORIDE 0.9% INJ SCH (10:21)
[2018-06-29] MEDS: TYLENOL PO PRN ×2 (11:46→20:35)
--- NOTE | 2018-06-29 20:02 | PROGRESS NOTE ---
DATE: 06/29/2018 SUBJECTIVE: I spent a lot of time with the family at bedside. She might have a component of depression. Denies of any headaches. No shoulder pains and hip pains. She has started eating better today. PHYSICAL EXAMINATION: Vital Signs: Temperature is 97.8 degrees, blood pressure is 115/51, pulse 78. HEENT: Within normal limits. Neck: Supple. Chest: Decreased crackles in the left base. Heart: Sounds are regular. Abdomen: Belly is soft, nontender. Neurologic: No obvious deficits. Urine cultures are negative. Blood cultures are pending. LABS: CBC: White cell count 13, hematocrit 34, platelets 466,000. Sedimentation rate is 68. D- dimer 4.29. Sodium 138, potassium 4.0, chloride 105, BUN 19, creatinine 0.9. CK was normal. Troponin was normal. CRP sedimentation rate was elevated. B12, TSH are normal. ASSESSMENT AND PLAN: 1. Recent urinary tract infection. Followup urine cultures are negative. 2. Possible bronchopneumonia on the left side. Continue on intravenous vancomycin. 3. Dehydration, hypotension, better. Continue intravenous fluids. We will hold the beta amie. 4. Left shoulder pain due to osteoarthritis. 5. Elevated sedimentation rate and CRP. Questionable polymyalgia rheumatica. Currently, she is not offering any significant complaints other than fatigue and weakness. 6. Deep venous thrombosis prophylaxis with Lovenox. 7. Gastrointestinal prophylaxis with intravenous Pepcid. 8. Possible depression. Will exclude other issues. 9. Out of the bed with ambulation and also orthostatic blood pressures tomorrow, and will follow up. LEVEL OF DOCUMENTATION: 25 minutes. cc: Niko Lilly MD
[2018-06-30] MEDS: VANCOMYCIN 1 GM/NS 1 GM/250 ML IVPB IV SCH (01:55)
[2018-06-30] MEDS: NS 1,000 ML IV SCH (01:55)
[2018-06-30] MEDS: TYLENOL PO PRN ×2 (02:09→10:39)
[2018-06-30] MEDS: SODIUM CHLORIDE 0.9% INJ SCH (09:26)
[2018-06-30] MEDS: PEPCID IV SCH ×2 (09:26→20:20)
--- NOTE | 2018-06-30 13:47 | Diag Imaging Result Doc PS360 ---
EXAM: CHEST-2 VIEWS HISTORY: SOB TECHNIQUE: Chest two views COMPARISON: None. FINDINGS: The lungs are hyperexpanded. The heart is not enlarged. The vessels are not distended. There are small basilar infiltrates versus atelectasis. Tiny pleural effusions. IMPRESSION: Stable chest Electronically signed by Oscar Kellre 06/30/2018 1:45 PM
[2018-06-30] MEDS: TORADOL IV PRN ×2 (14:21→20:31)
[2018-06-30] MEDS: LOVENOX SUBQ SCH (20:20)
--- NOTE | 2018-06-30 22:38 | PROGRESS NOTE ---
DATE: 06/30/2018 SUBJECTIVE: The patient woke up with chest pain on the left side, pleuritic. Poor IV access. OBJECTIVE: On exam, temperature is 97 degrees, blood pressure is stable. HEENT exam within normal limits. Neck is supple. No signs of pneumonitis. Heart sounds are regular. Belly is soft, nontender. No obvious neurological deficits. Urine culture is negative. ASSESSMENT AND PLAN: 1. Hypotension. Hold the blood pressure medicine. The patient is on vancomycin. 2. Dehydration is better. She is tolerating the diet very well. Decrease her intravenous fluids. 3. Left-sided chest pain. Chest x-ray was stable. Continue on incentive spirometry. Toradol as needed. 4. Deep venous thrombosis prophylaxis with Lovenox. 5. Gastrointestinal prophylaxis with Pepcid. 6. Elevated sedimentation rate and C-reactive protein. Doubt polymyalgia rheumatica. Continue to monitor. If things do not get better, consider prednisone. We will follow up. Level of documentation 25 minutes. cc: Niko Lilly MD
[2018-07-01] MEDS: TORADOL IV PRN (04:04)
[2018-07-01] MEDS: TYLENOL PO PRN (06:39)
[2018-07-01 07:31] VITALS: BP 138/51
[2018-07-01] MEDS: PEPCID IV SCH (08:35)
[2018-07-01] MEDS: SODIUM CHLORIDE 0.9% INJ SCH (08:35)
[2018-07-01] MEDS ORDERED: PREVNAR 13 IM ONE (11:54)
[2018-07-01] MEDS: VANCOMYCIN 1 GM/NS 1 GM/250 ML IVPB IV SCH (13:32)
--- NOTE | 2018-07-01 20:22 | DISCHARGE SUMMARY ---
ADMISSION DATE: 06/28/2018 DISCHARGE DATE: 07/01/2018 DISCHARGING DIAGNOSES: 1. Left-sided chest pain, probably due to musculoskeletal pain. 2. History of bronchopneumonia, improving. 3. Hypotension. Discontinue the Zebeta. 4. Elevated sedimentation rate and CRP. We will continue to monitor. 5. Left shoulder osteoarthritis. 6. Recent urinary tract infection, got better. BRIEF HISTORY: Please see the H and P that was done on 06/28/2018. In brief she is a 77-year-old white female who came in with left-sided chest pain, hypoxemia, dehydration, hypotension. The patient was seen in the emergency room. The patient had some crackles on the left base and pain. HOSPITAL COURSE: 1. Dehydration. Given IV fluids. I did advise the patient to stop the Zebeta. Followup blood pressure is stable. 2. Recent UTI got better. 3. Positive D-dimer, and CT pulmonary angiogram with no evidence of PE. Some atelectasis, bronchopneumonia. Patient was given IV vancomycin. Incentive spirometry was administered and Toradol was given. A lot better. 4. Left shoulder pain, osteoarthritis. 5. Elevated CRP and sedimentation rate. The patient did not have any headache. No PMR symptoms. Continue to monitor. 6. Further workup revealed cardiac enzymes negative. EKG normal sinus, nothing acute. Previous stress test in 2017 was negative. The patient is off oxygen, ambulating very well. Family was at bedside and anxious to go home. LABS: CBC: White cell count 13, hematocrit 34, platelets 466,000. Sedimentation rate 68. ABG with pH 7.46, pCO2 of 33, PO2 of 81. SMA 7 is normal. Cardiac enzymes were normal. CRP was slightly high. B12, TSH is normal. Repeat urine cultures and blood cultures were negative. Repeat chest x-ray was improving as well as clinical exam findings were reassuring. DISCHARGE INSTRUCTIONS: Initiate vaccination protocol. Pneumococcal vaccine prior to the discharge. Incentive spirometry. Sulindac 200 mg daily, vitamin D3 at 800 units daily. Hold the Zebeta. Zofran as needed for pain. We will follow up on outpatient with physical exam next week. We will closely monitor sedimentation rate and CRP and follow up in my office next week. cc: Niko Lilly MD
== END 2018-07-01 14:10 | disposition home or self-care (01) | DRG 640 ==
LOC: ED 02:32 → 3N 08:56
PROVIDERS: ADMIT Internal Medicine; ATTEND Internal Medicine
CPT/HCPCS: 51701; 71010; 71020; 71045; 71046; 71275; 80048; 80053; 81001; 82550; 82607; 82805; 83605; 83880; 84439; 84484; 85027; 85379; 85651; 86140; 87040; 87088; 87275; 87276; 87804; 90670; 93005; 96365; 99285; A9270; J1650; J1885; J1956; J2405; J3370; J7030; J7040; P9612; Q9967; S0028

== ENCOUNTER 2018-10-10 10:42 | Inpatient (IN) ==
[2018-10-10] MEDS ORDERED: GOLYTELY PO ONE (11:17)
[2018-10-10 12:09] LABS: HEMOGLOBIN 11.8 g/dL (12.0-16.0); RBC 3.99 XMIL (4.2-5.4); WBC 19.48 X1000 (4.8-10.8)
[2018-10-10 12:10] LABS: MCH 29.6 PG (27-31); MCHC 31.9 g/dL (33-37); MCV 92.7 FL (81-99); MPV 9.2 FL (7.4-10.4); RDW 14.5 % (11.5-14.5)
[2018-10-10 12:24] LABS: ALB/GLOB RATIO 0.8; ALBUMIN 3.4 g/dL (3.5-5.0); CALCIUM 9.4 mg/dL (8.8-10.2); CREATININE 0.9 mg/dL (0.5-0.9); POTASSIUM 4.2 mmol/L (3.5-5.1); TOTAL BILIRUBIN 0.6 mg/dL (0.20-1.00); TOTAL PROTEIN 7.8 g/dL (6.3-8.3)
[2018-10-10] MEDS: NS 1,000 ML IV SCH (14:25)
[2018-10-10] MEDS: TORADOL IV PRN ×2 (14:50→20:56)
[2018-10-10] MEDS: FLAGYL 500 MG/NS 500 MG/100 ML IVPB IV SCH ×2 (14:52→23:00)
[2018-10-10 16:00] LABS: URINE SOURCE CLEAN CATCH
[2018-10-10] MEDS: LEVAQUIN 500 MG/D5W 500 MG/100 ML IVPB IV SCH (16:16)
[2018-10-10 16:18] LABS: BILIRUBIN URINE NEGATIVE (NEGATIVE); BLOOD URINE NEGATIVE (NEGATIVE); COLOR YELLOW; GLUCOSE URINE NEGATIVE (NEGATIVE); KETONE URINE 20 mg/dL (NEGATIVE); LEUKOCYTES URINE SMALL (NEGATIVE); NITRITE URINE NEGATIVE (NEGATIVE); PH URINE 6.5; PROTEIN URINE TRACE mg/dL (NEGATIVE); SP GRAVITY URINE 1.017; TURBIDITY URINE HAZY (CLEAR); UROBILINOGEN URINE NORMAL (NORMAL)
[2018-10-10 16:19] LABS: UR EPITHELIAL CELLS >10 /HPF (<10); URINE BACTERIA 4+ /HPF; URINE RBC <10 /HPF (<10)
[2018-10-10] MEDS: NEXIUM IV SCH (20:11)
--- NOTE | 2018-10-11 02:38 | HISTORY AND PHYSICAL ---
CHIEF COMPLAINT: Left-sided abdominal pain for the last 3 days. HISTORY OF PRESENT ILLNESS: She is an 78-year-old white female, recently was seen by urologist for left-sided kidney stone. Apparently, patient had on 08/23/2017 cystoscopy, left ureteroscopy, stone basket extraction, placement of double-J stent. Subsequently, the patient is getting better and she continues to have symptoms, and urologist did a CT renal stone search on 10/04/2018. She had a calcified granuloma in the right lower lobe. No calcified gallstones, and prominent stool throughout the colon, mild thickening of the sigmoid colon, scattered diverticula, resolution of left hydronephrosis. She had also hysterectomy. Apparently, she is not getting better over the holiday and reported to me by the family that she is feeling constipated, abdominal pain all the way to the left side of the abdomen into the chest. The patient was seen in my office today. She was crying and flat/upright of the abdomen showed moderate to severe constipation, atelectasis in the left lower lobe, and tender in the left lower quadrant due to diverticulitis. As a result, the patient has been admitted to the hospital and white cell count 19,000. The patient was started on basically IV antibiotics with Levaquin and Flagyl, Toradol for pain, intravenous fluids, and also give her GoLYTELY for the constipation. As a result, a hospital admission was warranted. PAST MEDICAL HISTORY: Atypical chest pain, stress test was negative June 2016, history of C difficile colitis in the past, metabolic syndrome, hyperlipidemia, hypertension, kidney stones, ventral hernia. PAST SURGICAL HISTORY: Complete hysterectomy, cataract surgery in the left eye. MEDICATIONS: None reported. ALLERGIES: Penicillin. SOCIAL HISTORY: She is for 60 years, 3 children, living in [place]. No smoking. No alcohol. FAMILY HISTORY: Father at the age of 85. Mom of pneumonia at 99. Brother had a heart attack. HEALTH MAINTENANCE: Flu vaccine 2018. Pneumococcal 2016. Shingles 2015. Colonoscopy [address] Haywood. Mammography in July 2017. REVIEW OF SYSTEMS: HEENT: No headache. No vision problem. No earache. No sore throat. Neck: No goiter. No lymphadenopathy. No bruit. Cardiopulmonary: Left-sided some pain. No shortness of breath, cough, wheezing. Gastrointestinal: Constipation, left- sided abdominal pain. Genitourinary: No history of dysuria, hesitancy, frequency. Extremities: No swelling of legs. No joint pain. Neurologic: No focal symptoms or weakness. EXAM: Vital signs: Low-grade fever. Tachycardic. Vitals are stable. HEENT: Within normal limits. Neck: Supple. No lymphadenopathy. No goiter. Chest: Bilateral air entry. Heart: Sounds are regular. Abdomen: Belly is soft. Tender left lower quadrant. No signs of peritonitis. Neurologic: No obvious neurological deficits. INVESTIGATIONS: White cell count 19.48, hematocrit 37, platelets 42,000. Sodium 135, potassium 4.2, chloride 100, BUN 19, creatinine 0.9. Glucose 110. Liver function tests were normal. Urinalysis is negative. Flat/upright of the abdomen showed constipation, atelectasis. ASSESSMENT AND PLAN: An 78-year-old white female admitted to the hospital with constipation, diverticulitis. PLAN: 1. IV fluids. 2. Continue IV Levaquin and Flagyl. 3. Probiotics as needed. 4. Constipation. GoLYTELY. 5. IV Nexium. 6. Toradol for pain. 7. Repeat the chest x-ray, PA and lateral view in the morning. 8. Will discuss with the family. Will follow up. cc: Niko Lilly MD MTDD
[2018-10-11] MEDS: TORADOL IV PRN ×3 (03:09→21:56)
[2018-10-11] MEDS: FLAGYL 500 MG/NS 500 MG/100 ML IVPB IV SCH ×4 (06:00→22:30)
[2018-10-11] MEDS: NS 1,000 ML IV SCH ×2 (06:01→21:55)
--- NOTE | 2018-10-11 07:25 | EKG Report ---
Test Performed on : 10/11/2018 06:55:12 AM Test Reason : cp Blood Pressure : / mmHG Vent. Rate : 093 BPM Atrial Rate : 093 BPM P-R Int : 146 ms QRS Dur : 086 ms QT Int : 330 ms P-R-T Axes : 040 006 040 degrees QTc Int : 410 ms Normal sinus rhythm. Normal ECG Confirmed by Sherrill LANE, Shun Jackson ([id number]) on 10/11/2018 8:32:03 AM
[2018-10-11 08:06] LABS: BASO# 0.03 X1000 (0.0-0.2); BASO% 0.2 % (0.0-0.8); EOS% 0.7 % (0.0-10.0); HEMATOCRIT 31.9 % (37.0-47.0); HEMOGLOBIN 10.3 g/dL (12.0-16.0); IMM GRAN# 0.09 X1000 (0.0-0.04); IMM GRAN% 0.6 % (0.0-0.5); LYMPH# 2.45 X1000 (1.2-3.4); LYMPH% 16.3 % (20.5-51.1); MCHC 32.3 g/dL (33-37); MONO# 1.19 X1000 (0.11-0.59); MONO% 7.9 % (1.7-9.3); MPV 9.2 FL (7.4-10.4); NEUT# 11.19 X1000 (1.4-6.5); NEUT% 74.3 % (42.2-75.2); PLT 437 X1000 (130-400); RBC 3.43 XMIL (4.2-5.4); RDW 14.4 % (11.5-14.5); WBC 15.05 X1000 (4.8-10.8)
--- NOTE | 2018-10-11 08:09 | Diag Imaging Result Doc PS360 ---
EXAM: CHEST-2 VIEWS INDICATION: hypoxia TECHNIQUE: 2 views COMPARISON: 06/30/2018 FINDINGS: There is a left basilar airspace consolidation suggesting pneumonia. There is probably a component of atelectasis as well, and there may be a small effusion. The right lung is clear. Cardiac silhouette is unremarkable. IMPRESSION: Left basilar consolidation as described. Electronically signed by Darci Obando 10/11/2018 8:07 AM
[2018-10-11 08:31] LABS: AGAP 11; BUN 17 mg/dL (8-22); CALCIUM 8.4 mg/dL (8.8-10.2); CHLORIDE 103 mmol/L (98-107); COSMO 273; CREATININE 0.8 mg/dL (0.5-0.9); ESTIMATED GFR > 60; GLUCOSE 91 mg/dL (70-104); POTASSIUM 3.9 mmol/L (3.5-5.1); SODIUM 136 mmol/L (136-145); TCO2 22 mmol/L (25-35)
[2018-10-11] MEDS: LEVAQUIN 500 MG/D5W 500 MG/100 ML IVPB IV SCH (11:10)
[2018-10-11] MEDS: SODIUM CHLORIDE 0.9% INJ SCH (18:28)
[2018-10-11] MEDS: NEXIUM IV SCH (18:28)
--- NOTE | 2018-10-11 22:34 | PROGRESS NOTE ---
DATE: 10/11/2018 SUBJECTIVE: The patient is a little better. No coughing. Decreased abdominal pain. Having bowel movements and wants to eat. PHYSICAL EXAMINATION: Vital Signs: Temperature is 98, pulse 90. Vitals are stable. HEENT: Within normal limits. Lungs: Decreased breath sounds in the left base. Cardiovascular: Heart sounds are regular. Abdomen: Belly is soft, nontender. No signs of peritonitis. INVESTIGATIONS: CBC: White cell count 15, hematocrit 31.9, platelets 437. Sodium 136, potassium 3.9, chloride 103. BUN 17, creatinine 0.8, glucose 84. Cardiac enzymes were normal. EKG is negative. Urine culture: Gram-negative rods. Chest x-ray: Left lower lobe consolidation. ASSESSMENT AND PLAN: 1. Left lower lobe hypostatic pneumonia. Incentive spirometry. 2. Urinary tract infection. Follow up on culture and sensitivity. 3. Diverticulitis. Continue IV Levaquin and Flagyl. Continue IV fluids. 4. DVT prophylaxis with antithrombotic stockings. 5. Advance diet with clear liquids. 6. Toradol for pain. 7. Continue IV Nexium. 8. Continue to monitor CBC, SMA 7 as well as chest x-ray. She needs to continue at least the next 3 days. LEVEL OF DOCUMENTATION: 25 minutes. cc: Niko Lilly MD
[2018-10-12] MEDS: NS 1,000 ML IV SCH ×2 (02:19→18:49)
[2018-10-12] MEDS: FLAGYL 500 MG/NS 500 MG/100 ML IVPB IV SCH ×4 (05:28→23:38)
[2018-10-12 07:57] LABS: BASO% 0.3 % (0.0-0.8); EOS% 1.3 % (0.0-10.0); HEMATOCRIT 30.9 % (37.0-47.0); LYMPH% 21.4 % (20.5-51.1); MCH 29.6 PG (27-31); MCHC 32.4 g/dL (33-37); MCV 91.4 FL (81-99); MONO% 8.8 % (1.7-9.3); MPV 9.2 FL (7.4-10.4); NEUT% 67.6 % (42.2-75.2); PLT 480 X1000 (130-400); RBC 3.38 XMIL (4.2-5.4); RDW 14.3 % (11.5-14.5); WBC 10.48 X1000 (4.8-10.8)
[2018-10-12 07:58] LABS: BASO# 0.03 X1000 (0.0-0.2); EOS# 0.14 X1000 (0.0-0.7); IMM GRAN# 0.06 X1000 (0.0-0.04); IMM GRAN% 0.6 % (0.0-0.5); LYMPH# 2.24 X1000 (1.2-3.4); MONO# 0.92 X1000 (0.11-0.59); NEUT# 7.09 X1000 (1.4-6.5)
[2018-10-12 08:23] LABS: AGAP 10; BUN 12 mg/dL (8-22); CALCIUM 8.7 mg/dL (8.8-10.2); CHLORIDE 108 mmol/L (98-107); COSMO 275; CREATININE 0.7 mg/dL (0.5-0.9); ESTIMATED GFR > 60; GLUCOSE 94 mg/dL (70-104); POTASSIUM 3.8 mmol/L (3.5-5.1); SODIUM 138 mmol/L (136-145); TCO2 20 mmol/L (25-35)
[2018-10-12] MEDS: LEVAQUIN 500 MG/D5W 500 MG/100 ML IVPB IV SCH (12:08)
[2018-10-12] MEDS: NEXIUM IV SCH (18:51)
[2018-10-12] MEDS: SODIUM CHLORIDE 0.9% INJ SCH (18:51)
--- NOTE | 2018-10-12 21:01 | PROGRESS NOTE ---
DATE: 10/12/2018 SUBJECTIVE: The patient is getting better. No abdominal pain. No chest pain. Breathing is improving. Had good bowel movements. PHYSICAL EXAMINATION: Vital Signs: Temperature is 98 degrees, pulse 83. Vitals are stable. Lungs: Improved air entry in the left base. Heart: Sounds are regular. Abdomen: Belly is soft and nontender. INVESTIGATIONS: CBC: White cell count 10, hematocrit 30.9, platelets 480,000. Sodium 138, potassium 3.8, chloride 108, BUN 12, creatinine 0.7, glucose 94. CK and troponin were normal. EKG normal sinus, nothing acute. Urine culture showing gram-negative rods. ASSESSMENT AND PLAN: 1. Focal diverticulitis. Continue on Levaquin and Flagyl. 2. Urinary tract infection. Follow up on culture and sensitivity. 3. Dehydration is better. 4. Left lower lobe hypostatic pneumonia, improving. Get a chest x-ray, 2 views. 5. Constipation is improving. 6. Recent urinary tract infection with kidney stones. Workup was negative by Dr. Wilcox and we will check the labs in the morning. LEVEL OF DOCUMENTATION: 25 minutes. cc: Niko Lilly MD
[2018-10-12] MEDS ORDERED: TORADOL IV ONE (23:59)
[2018-10-13] MEDS: NS 1,000 ML IV SCH ×2 (03:55→16:33)
[2018-10-13] MEDS: FLAGYL 500 MG/NS 500 MG/100 ML IVPB IV SCH ×3 (06:27→23:54)
[2018-10-13 07:08] LABS: BASO# 0.05 X1000 (0.0-0.2); BASO% 0.7 % (0.0-0.8); EOS# 0.15 X1000 (0.0-0.7); EOS% 2.2 % (0.0-10.0); HEMATOCRIT 30.7 % (37.0-47.0); HEMOGLOBIN 9.9 g/dL (12.0-16.0); IMM GRAN# 0.05 X1000 (0.0-0.04); IMM GRAN% 0.7 % (0.0-0.5); LYMPH# 2.17 X1000 (1.2-3.4); LYMPH% 31.7 % (20.5-51.1); MCH 29.5 PG (27-31); MCHC 32.2 g/dL (33-37); MCV 91.4 FL (81-99); MONO# 0.77 X1000 (0.11-0.59); MONO% 11.2 % (1.7-9.3); MPV 9.4 FL (7.4-10.4); NEUT# 3.66 X1000 (1.4-6.5); NEUT% 53.5 % (42.2-75.2); PLT 470 X1000 (130-400); RBC 3.36 XMIL (4.2-5.4); RDW 14.5 % (11.5-14.5); WBC 6.85 X1000 (4.8-10.8)
[2018-10-13 07:34] LABS: CHLORIDE 110 mmol/L (98-107); POTASSIUM 3.5 mmol/L (3.5-5.1); SODIUM 142 mmol/L (136-145); TCO2 20 mmol/L (25-35)
[2018-10-13 07:35] LABS: AGAP 12; BUN 12 mg/dL (8-22); CALCIUM 8.2 mg/dL (8.8-10.2); COSMO 283; CREATININE 0.6 mg/dL (0.5-0.9); ESTIMATED GFR > 60; GLUCOSE 93 mg/dL (70-104)
[2018-10-13] MEDS: LEVAQUIN 500 MG/D5W 500 MG/100 ML IVPB IV SCH (10:54)
--- NOTE | 2018-10-13 11:16 | Diag Imaging Result Doc PS360 ---
ABDOMEN FLAT/UPRIGHT - 10/13/2018 INDICATION: pain COMPARISON: 06/25/2013 FINDINGS: There is moderate constipation of the proximal and transverse colon. No bowel obstruction or free air. No abnormal calcifications. IMPRESSION: Moderate constipation. Electronically signed by Natanael Hutchison 10/13/2018 11:14 AM
[2018-10-13] MEDS: COLACE PO SCH ×2 (12:03→20:43)
[2018-10-13] MEDS: MACROBID PO SCH ×2 (12:03→20:44)
--- NOTE | 2018-10-13 14:49 | PROGRESS NOTE ---
DATE: 10/13/2018 SUBJECTIVE: The patient is feeling much better. She does not want to be constipated again. Her x-ray of her abdomen yesterday did show constipation. Her urine culture shows E. coli with much resistance but is sensitive to Macrobid. OBJECTIVE: Vital Signs: Temperature is 97.5 degrees Fahrenheit, pulse 75, respirations 16, blood pressure 134/63. HEENT: She is normocephalic. EOMS intact. PERRLA. Throat clear. Lungs: Sound clear to auscultation. She has had a left lower lobe pneumonia. Heart: Regular rate and rhythm without murmurs, gallops, or friction rubs. Abdomen: Soft. Active bowel sounds. No organomegaly or tenderness. Neurological: Intact grossly. ASSESSMENT: 1. Focal diverticulitis. 2. Urinary tract infection. 3. Left lower lobe pneumonia. 4. Constipation. PLAN: We will start her on some Colace, and we will place her on Macrobid. Continue the rest of her care. cc: MD Niko Farnsworth Jr, MD
[2018-10-13] MEDS: NEXIUM IV SCH (18:14)
[2018-10-14 00:27] LABS: URINE SOURCE CLEAN CATCH
[2018-10-14 00:34] LABS: BILIRUBIN URINE NEGATIVE (NEGATIVE); BLOOD URINE NEGATIVE (NEGATIVE); COLOR YELLOW; GLUCOSE URINE NEGATIVE (NEGATIVE); KETONE URINE NEGATIVE (NEGATIVE); LEUKOCYTES URINE NEGATIVE (NEGATIVE); NITRITE URINE NEGATIVE (NEGATIVE); PROTEIN URINE NEGATIVE (NEGATIVE); SP GRAVITY URINE 1.007; TURBIDITY URINE CLEAR (CLEAR); UROBILINOGEN URINE NORMAL (NORMAL)
[2018-10-14 00:36] LABS: UR EPITHELIAL CELLS <10 /HPF (<10); URINE BACTERIA NEGATIVE /HPF; URINE RBC <10 /HPF (<10); URINE WBC <10 /HPF (<10)
[2018-10-14] MEDS: FLAGYL 500 MG/NS 500 MG/100 ML IVPB IV SCH ×3 (06:18→22:09)
[2018-10-14] MEDS: NS 1,000 ML IV SCH ×2 (06:18→20:13)
[2018-10-14] MEDS: TYLENOL PO PRN ×2 (06:24→12:53)
--- NOTE | 2018-10-14 09:43 | Diag Imaging Result Doc PS360 ---
CHEST-2 VIEWS - 10/14/2018 INDICATION: pneumonia COMPARISON: 10/11/2018 FINDINGS: There is a small left basilar pleural effusion. There is an adjacent infiltrate. The infiltrate has decreased since prior. Aside from some linear atelectasis in the base, the right lung is clear. Heart size is normal. IMPRESSION: Improvement in the left basilar infiltrate. Stable small left pleural effusion. Electronically signed by Natanael Hutchison 10/14/2018 9:41 AM
[2018-10-14] MEDS ORDERED: ZOFRAN ODT PO PRN (09:53)
[2018-10-14] MEDS: COLACE PO SCH ×2 (10:06→20:11)
[2018-10-14] MEDS: MACROBID PO SCH ×2 (10:06→20:11)
[2018-10-14] MEDS: LEVAQUIN 500 MG/D5W 500 MG/100 ML IVPB IV SCH (12:53)
--- NOTE | 2018-10-14 13:53 | PROGRESS NOTE ---
DATE: 10/14/2018 SUBJECTIVE: The patient says she did have some bladder cramping earlier but that has gone away. She did get a little nauseated and wondered if it was from the Macrobid. We gave her some Zofran and she seems to be doing all right with that. Has no complaints right this minute. OBJECTIVE: Vital signs: Show blood pressure 144/61, respirations 16, pulse 82, temperature 98.6 degrees Fahrenheit. HEENT: She is normocephalic. EOMS intact. PERRLA. Throat clear. Lungs: Are clear to auscultation and percussion without rhonchi, rales, or wheezes. Heart: Regular rate and rhythm without murmurs, gallops, or friction rubs. Abdomen: Soft. Active bowel sounds. No organomegaly or tenderness. Neurologic: Intact grossly. DIAGNOSTIC DATA: Chest x-ray shows improvement of the left basilar infiltrate. White count is down to 6850 from a high of 19,480. Electrolytes essentially normal. ASSESSMENT: 1. Focal diverticulitis. 2. Left lower lobe pneumonia. 3. Urinary tract infection. Repeat urinalysis after 1 day of Macrobid was fairly clear. 4. Constipation. PLAN: Continue care. May not have to be on the Macrobid for very long. cc: MD Niko Farnsworth Jr, MD
[2018-10-14] MEDS: NEXIUM IV SCH (20:11)
[2018-10-14] MEDS: SODIUM CHLORIDE 0.9% INJ SCH (20:12)
[2018-10-15] MEDS: NS 1,000 ML IV SCH (06:03)
[2018-10-15] MEDS: FLAGYL 500 MG/NS 500 MG/100 ML IVPB IV SCH ×2 (06:06→17:07)
[2018-10-15 06:33] LABS: BASO# 0.04 X1000 (0.0-0.2); BASO% 0.7 % (0.0-0.8); EOS# 0.28 X1000 (0.0-0.7); EOS% 4.8 % (0.0-10.0); HEMATOCRIT 32.8 % (37.0-47.0); HEMOGLOBIN 10.7 g/dL (12.0-16.0); IMM GRAN# 0.02 X1000 (0.0-0.04); IMM GRAN% 0.3 % (0.0-0.5); LYMPH# 1.66 X1000 (1.2-3.4); LYMPH% 28.7 % (20.5-51.1); MCH 29.8 PG (27-31); MCHC 32.6 g/dL (33-37); MCV 91.4 FL (81-99); MONO# 0.85 X1000 (0.11-0.59); MONO% 14.7 % (1.7-9.3); MPV 9.1 FL (7.4-10.4); NEUT# 2.94 X1000 (1.4-6.5); NEUT% 50.8 % (42.2-75.2); PLT 472 X1000 (130-400); RBC 3.59 XMIL (4.2-5.4); RDW 14.7 % (11.5-14.5); WBC 5.79 X1000 (4.8-10.8)
[2018-10-15 06:46] LABS: AGAP 12; BUN 7 mg/dL (8-22); CALCIUM 8.5 mg/dL (8.8-10.2); CHLORIDE 107 mmol/L (98-107); COSMO 280; CREATININE 0.6 mg/dL (0.5-0.9); ESTIMATED GFR > 60; GLUCOSE 116 mg/dL (70-104); POTASSIUM 2.8 mmol/L (3.5-5.1); SODIUM 141 mmol/L (136-145); TCO2 22 mmol/L (25-35)
[2018-10-15] MEDS ORDERED: KLOR-CON PO ONE (08:10)
--- NOTE | 2018-10-15 08:44 | Diag Imaging Result Doc PS360 ---
ABDOMEN FLAT/UPRIGHT - 10/15/2018 INDICATION: pain COMPARISON: 10/13/2018 FINDINGS: There has been slight improvement in the dense constipation of the proximal colon. No bowel obstruction or free air. IMPRESSION: Slight improvement in the constipation. No acute disease. Electronically signed by Natanael Hutchison 10/15/2018 8:41 AM
[2018-10-15 08:55] LABS: INR 1.59; PROTIME 19.3 Seconds (11.0-16.0)
[2018-10-15 08:57] LABS: PTT 35.2 Seconds (22.3-41.8)
[2018-10-15] MEDS: MACROBID PO SCH ×2 (09:03→20:34)
[2018-10-15] MEDS: COLACE PO SCH ×2 (09:03→20:34)
[2018-10-15] MEDS: POTASSIUM CHLORIDE 20 MEQ/SWI 20 MEQ/100 ML IVPB IV SCH ×2 (13:01→14:57)
[2018-10-15] MEDS: LEVAQUIN 500 MG/D5W 500 MG/100 ML IVPB IV SCH (18:31)
[2018-10-15] MEDS: NEXIUM IV SCH (20:34)
[2018-10-15] MEDS: TYLENOL PO PRN (20:34)
[2018-10-16] MEDS: FLAGYL 500 MG/NS 500 MG/100 ML IVPB IV SCH ×2 (01:24→09:43)
[2018-10-16 06:05] LABS: BASO# 0.03 X1000 (0.0-0.2); BASO% 0.5 % (0.0-0.8); EOS# 0.22 X1000 (0.0-0.7); EOS% 3.5 % (0.0-10.0); HEMATOCRIT 33.3 % (37.0-47.0); HEMOGLOBIN 10.9 g/dL (12.0-16.0); IMM GRAN# 0.03 X1000 (0.0-0.04); IMM GRAN% 0.5 % (0.0-0.5); LYMPH# 1.63 X1000 (1.2-3.4); LYMPH% 25.9 % (20.5-51.1); MCH 29.7 PG (27-31); MCHC 32.7 g/dL (33-37); MCV 90.7 FL (81-99); MONO# 0.77 X1000 (0.11-0.59); MONO% 12.2 % (1.7-9.3); MPV 9.1 FL (7.4-10.4); NEUT# 3.62 X1000 (1.4-6.5); NEUT% 57.4 % (42.2-75.2); PLT 500 X1000 (130-400); RBC 3.67 XMIL (4.2-5.4); RDW 14.8 % (11.5-14.5)
[2018-10-16 06:34] LABS: AGAP 12; BUN 6 mg/dL (8-22); CALCIUM 9.2 mg/dL (8.8-10.2); CHLORIDE 106 mmol/L (98-107); COSMO 277; CREATININE 0.6 mg/dL (0.5-0.9); ESTIMATED GFR > 60; GLUCOSE 95 mg/dL (70-104); POTASSIUM 3.8 mmol/L (3.5-5.1); SODIUM 140 mmol/L (136-145); TCO2 22 mmol/L (25-35)
--- NOTE | 2018-10-16 07:20 | PROGRESS NOTE ---
DATE: 10/15/2018 SUBJECTIVE: The patient is anxious to go home. Events were noted over the weekend. Constipation slightly better. Dense consolidation in the left lower lobe, slowly improving. REVIEW OF SYSTEMS: None reported. PHYSICAL EXAMINATION: Temp is 98.7 degrees, pulse 78, blood pressure is 147/69, 97% on room air.HEENT: Within normal limits. Neck: Supple. Chest: Crackles decreasing in the left side base as well as decrease the rales. Heart: Sounds are regular. Abdomen: Belly is soft, nontender. Good bowel sounds. Extremities: No peripheral edema, cyanosis. Neurologic: No neurological deficits. INVESTIGATIONS: CBC: White cell count 5.7, hematocrit 32.8, platelet 472,000. PT 19, INR 1.59. Sodium 140, potassium 2.8, BUN 12, creatinine 0.7. Repeat urinalysis is clear. Urine cultures 10/10/2018, ESBL Escherichia coli. X-ray flat and upright, improving the constipation, still has some fluid in the left lung. ASSESSMENT AND PLAN: 1. Left lower lobe consolidation with pleural effusions. 2. Hypokalemia. 3. ESBL Escherichia coli. 4. Poor intravenous access. PLAN: Replace the potassium. PICC line for IV access. Patient is anxious to go home. Consider IV home antibiotics with Invanz. Colitis. Continue on Levaquin and Flagyl. Dr. Cortes started on Macrobid. We will repeat the chest x-ray and blood workup in the morning. PICC line was ordered. We will arrange home IV antibiotics if she had anxious to go home. I am going to repeat the chest x-ray and white cell count is improving. LEVEL OF DOCUMENTATION: 25. cc: Niko Lilly MD
--- NOTE | 2018-10-16 07:51 | Diag Imaging Result Doc PS360 ---
EXAM: CHEST-2 VIEWS 10/16/2018 HISTORY: hypoxia TECHNIQUE: PA and lateral chest COMMENT: The left pleural effusion present on 10/14/2018 has diminished in volume. There are some atelectatic changes in both bases which have also improved slightly. IMPRESSION: Improved left pleural effusion and bibasilar atelectasis. Electronically signed by Nilesh Lou 10/16/2018 7:48 AM
[2018-10-16] MEDS: COLACE PO SCH (09:43)
[2018-10-16] MEDS: MACROBID PO SCH (09:43)
[2018-10-16 11:31] VITALS: BP 165/84
[2018-10-16] MEDS ORDERED: INVANZ 1 GM/NS 1 GM/50 ML IVPB IV ONE (15:33)
--- NOTE | 2018-10-19 21:45 | DISCHARGE SUMMARY ---
ADMISSION DATE: 10/10/2018 DISCHARGE DATE: 10/16/2018 DISCHARGING DIAGNOSIS: Left-sided abdominal pain due to sigmoid colitis. SECONDARY DIAGNOSES: 1. Urinary tract infection with extended spectrum beta-lactamase positive Escherichia coli. 2. History of kidney stones. 3. Left lower lobe hypostatic pneumonia. 4. Metabolic syndrome. 5. Hyperlipidemia. 6. Hypertension. PROCEDURES: PICC line on the left side. BRIEF HISTORY: Please see the H and P that was done on 10/10/2018. In brief she is an 78-year- old white female admitted to the hospital with left-sided abdominal pain, coughing, left-sided chest pain. The patient was found to have left lower lobe pneumonia constipation. Recent CT showed colitis. HOSPITAL COURSE: The patient has significant elevated white cell count 19.4. The patient was dehydrated. The patient was started on IV fluids, IV Levaquin and Flagyl. The patient has basically constipation and given GoLYTELY. Follow up slowly improving constipation. The patient was given incentive spirometry. The problems are as follows. 1. Kidney stones were removed by Dr. Wilcox. Urine cultures ESBL Escherichia coli. 2. Colitis was improving. 3. Left lower lobe hypostatic pneumonia. Continue incentive spirometry. Follow up x-rays slowly improving. 4. Constipation is better on GoLYTELY. Since the patient has ESBL Escherichia coli and the left lower lobe pneumonia, the patient is anxious to go home. Recommended outpatient IV antibiotics for 10 days. PICC line was placed due to poor IV access. LABORATORY DATA: As follows, CBC: White cell count 6.3, hematocrit 33, platelets 500,000. Sodium 140, potassium 3.8, chloride 106, BUN 6, creatinine 0.6, calcium 9.2. Urinalysis is clear. Urine cultures E coli ESBL positive. Follow up chest x-ray still dense consolidation. DISCHARGE INSTRUCTIONS: 1. MiraLAX 17 g daily. 2. Nexium 40 daily. 3. Colace 100 p.o. b.i.d. 4. Incentive spirometry. 5. IV Invanz 1 g q.24 hours for 10 days. 6. Follow up in my office, chest x-ray as well as repeat the labs and pneumococcal vaccine was given 07/01/2018. cc: Niko Lilly MD
== END 2018-10-16 16:59 | disposition home health service (06) | DRG 392 ==
LOC: DIRADM 10:42 → EDIPHOLD 11:07 → 1N 13:58
PROVIDERS: ADMIT Internal Medicine; ATTEND Internal Medicine